=== PATIENT | female | born 1960 | race American Indian/Alaskan Native ===

== ENCOUNTER 2016-03-09 10:06 | Emergency (ER) | payer SELFPAY ==
[2016-03-09 10:24] VITALS: BP 135/92
--- NOTE | 2016-03-09 11:19 | Emergency Department Report ---
ED Upper Extremity Inj HPI - General Chief Complaint: Extremity Injury, Upper Stated Complaint: POSS DISLOCATION/SPRANG SHOULDER Time Seen by Provider: 03/09/16 11:01 Source: patient Mode of arrival: Ambulatory Limitations: No Limitations - History of Present Illness Initial Comments: Patient complaining of left shoulder injury in the gym one week ago patient states it now is very painful to lift her arm laterally. Did do pushing exercises with that arm. -: Sudden, week(s) Other Extremity Injury: Shoulder: Left Severity scale (0 -10): 4 Worsens With: movement of extremity Context: sports-related injury - Related Data Previous Rx's Medication Instructions Recorded Last Taken Type Diclofenac Sodium [Diclofenac 100 mg PO 2XWHS #20 tab.er.24h 03/09/16 Unknown Rx Sodium ER] Allergies Allergy/AdvReac Type Severity Reaction Status Date / Time No Known Allergies Allergy Unverified 03/09/16 10:24 ED Review of Systems ROS: Stated complaint: POSS DISLOCATION/SPRANG SHOULDER Other details as noted in HPI Constitutional: denies: chills, fever Eyes: denies: eye pain, eye discharge, vision change ENT: denies: ear pain, throat pain Respiratory: denies: cough, shortness of breath, wheezing Cardiovascular: denies: chest pain, palpitations Gastrointestinal: denies: abdominal pain, nausea, diarrhea Musculoskeletal: other (left shoulder pain) Skin: denies: rash, lesions Neurological: denies: headache, weakness, paresthesias ED Past Medical Hx - Past Medical History Previous Medical History?: No - Surgical History Past Surgical History?: No - Social History Smoking Status: Never Smoker Substance Use Type: None - Medications Home Medications: Home Medications Medication Instructions Recorded Confirmed Last Taken Type Diclofenac Sodium [Diclofenac 100 mg PO 2XWHS #20 tab.er.24h 03/09/16 Unknown Rx Sodium ER] ED Physical Exam - General Limitations: No Limitations General appearance: alert, in no apparent distress - Head Head exam: Present: atraumatic, normocephalic - Eye Eye exam: Present: normal appearance - ENT ENT exam: Present: normal exam, mucous membranes moist - Neck Neck exam: Present: normal inspection - Respiratory Respiratory exam: Present: normal lung sounds bilaterally. Absent: respiratory distress - Cardiovascular Cardiovascular Exam: Present: regular rate - Expanded Upper Extremity Exam Left Shoulder Exam: Present: full ROM, other (pain with external rotation. Consistent with rotator cuff injury. Neurovascular motor intact distally.). Absent: tenderness, swelling, deformity, crepidus, dislocation, erythema, tenderness over AC joint ED Course Vital Signs 03/09/16 10:20 Temperature 97.7 F Pulse Rate 83 Respiratory 18 Rate Blood Pressure 135/92 O2 Sat by Pulse 98 Oximetry Critical care attestation.: If time is entered above; I have spent that time in minutes in the direct care of this critically ill patient, excluding procedure time. ED Disposition Clinical Impression: AC (acromioclavicular) arthritis Rotator cuff (capsule) sprain Qualifiers: Encounter type: initial encounter Laterality: left Qualified Code(s): S43.422A - Sprain of left rotator cuff capsule, initial encounter Disposition: DISCHARGED TO HOME OR SELFCARE Is pt being admited?: No Does the pt Need Aspirin: No Condition: Stable Instructions: Acromioclavicular Separation (ED), Rotator Cuff Injury (ED) Prescriptions: Diclofenac Sodium [Diclofenac Sodium ER] 100 mg PO 2XWHS #20 tab.er.24h Referrals: YOEL ESPINOZA MD [Staff Physician] - 3-5 Days
--- NOTE | 2016-03-09 11:30 | XRay Report ---
LEFT SHOULDER, 3 VIEWS History: Injury. Findings: There is external artifact overlying the left shoulder. The left a.c. joint is widened with elevation of the distal clavicle with respect to the acromion. Ligamentous injury at the a.c. joint is suspected. No fracture or dislocation is appreciated. The soft tissues are unremarkable. Impression: Ligamentous injury at the a.c. joint.
== END 2016-03-09 12:44 | disposition home or self-care (01) ==
LOC: ED 10:06
DX: S43.422A Sprain of left rotator cuff capsule, initial encounter (principal); M13.812 Other specified arthritis, left shoulder; X58.XXXA Exposure to other specified factors, initial encounter; Y93.9 Activity, unspecified; Y99.9 Unspecified external cause status; Y92.9 Unspecified place or not applicable